=== PATIENT | female | born 1950 | race Caucasian/White ===

== ENCOUNTER 2021-03-18 15:00 | Outpatient (RCR) | payer MEDICARE, SELFPAY ==
[2021-03-03 10:07] VITALS: BP 130/70; PULSE 89; O2SAT 98
== END 2021-03-23 13:41 | disposition home or self-care (01) ==
LOC: HO.PTCHIC 15:00
PROVIDERS: PCP Hospitalist; Visit Provider Nurse Practitioner Family
DX: R42 Dizziness and giddiness (principal)
CPT/HCPCS: 95992; 97112; 97140; 97161

== ENCOUNTER 2021-04-15 09:00 | Outpatient (RCR) | payer MEDICARE, SELFPAY | END 2021-05-06 09:00 | disposition home or self-care (01) | LOC: HO.PT 09:00 | PROVIDERS: PCP Hospitalist; Visit Provider Otolaryngology | DX: R42 Dizziness and giddiness (principal) | CPT/HCPCS: 97110; 97112; 97162 ==